=== PATIENT | male | born 1935 | race Caucasian/White ===

== ENCOUNTER 2017-07-31 13:53 | Emergency (ER) | payer MEDICARE, OTHER, SELFPAY ==
[2017-07-31 13:57] VITALS: BP 99/56; PULSE 74; RESP 18; TEMP 36.6; O2SAT 97; BMI 27.8
--- NOTE | 2017-07-31 14:16 | RAD_ITS ---
STUDY: X-RAY - LEFT SHOULDER REASON FOR EXAM: Male, 81 years old. Pain following a fall. History of prostate cancer. TECHNIQUE: 2 view(s) of the shoulder. COMPARISON: None. FINDINGS: There is moderate degenerative arthrosis of the glenohumeral articulation. There is degenerative arthrosis of the acromioclavicular joint without inferior osseous spur formation. Normal acromion. 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 There is evidence of a pathological oblique fracture of the proximal shaft of the left humerus. There is mild medial angulation at the fracture site. Soft tissue swelling. Increased markings at the left lung base suggestive of scarring and/or infiltrate. RAD/Shoulder min 2 Views IMPRESSION: Pathological fracture involving the proximal shaft of the left humerus as described. Osteoblastic metastasis. Increased markings at the left lung base. Electronically Signed: Mayur Garcia MD at 14:59 EST Tel [phone], Service support ,
--- NOTE | 2017-07-31 15:48 | ED.VISSUMM ---
- ER Visit Summary Date of Service: 07/31/17 Chief Complaint: [Injury left arm] History of Present Illness: The patient is a 81 M [presents with injury to left arm that occurred prior to arrival in the emergency department. Patient states that he was getting out of his vehicle and going to his oncologist's office to be weighed. As patient was getting out of his vehicle he put his weight on his left arm to brace himself and he felt a pop in his left arm and shoulder. Patient having severe pain and inability to move the arm very well. Patient does have a history of prostate cancer with metastasis.] Physical Examination: [HEENT-PERRLA, EOMI. Cranial nerves II through XII grossly intact. TMs clear. Mucous membranes moist. No adenopathy. Cardiovascular-regular rate and rhythm without murmur or ectopy Lungs-clear to auscultation, chest wall stable without crepitus or subcu emphysema Abdomen-normoactive bowel sounds, soft, nontender, no rebound or rigidity, no peritoneal signs. Extremities-intact ?4. Patient has obvious deformity to left proximal humerus with tenderness palpation. He has decreased range of motion of the glenohumeral joint. He is neurovascular intact distally. No breaks in the skin noted. Test Results: [X-ray of the left humerus showed a pathological fracture at the proximal shaft of the left humerus.] Emergency Department Course and Treatment: [I discussed case with Dr. Michael Sawant who asked that we place patient in a sling and swath and he will see the patient in the office in 1 week. Patient was given a dose of morphine in the emergency department with Zofran. Initially patient did not want anything for pain until prior to discharge.] Treatment Plan: [Sling and swath and Percocet for pain] Disposition: [Discharged to home in stable condition] Impression: [Pathological fracture left humerus] This note was generated with [employer] dictation software. It may contain incorrect words, spelling, and punctuation that were not noted in review of the chart prior to signing ED Disposition - Plan for ED Patient: Chief Complaint: Upper Extremity Injury Referrals: Keon Huizar [Primary Care Provider] -
--- NOTE | 2017-07-31 15:53 | ED.DEP ---
ED Disposition - Plan for ED Patient: Chief Complaint: Upper Extremity Injury Instructions: ED Fx Upper Ext Prescriptions: Oxycodone HCl/Acetaminophen [Percocet 5/325] 1 tab PO Q6H PRN PRN #20 tab PRN Reason: Pain Referrals: Keon Huizar [Primary Care Provider] - Additional Instructions: See Dr. Michael Sawant next in office. Call and ask for Ashley.
--- NOTE | 2017-07-31 15:56 | DCINST.ED_ITS ---
ED Disposition - Plan for ED Patient: Chief Complaint: Upper Extremity Injury Instructions: ED Fx Upper Ext Prescriptions: Oxycodone HCl/Acetaminophen [Percocet 5/325] 1 tab PO Q6H PRN PRN #20 tab PRN Reason: Pain Referrals: Keon Hiuzar [Primary Care Provider] - Additional Instructions: See Dr. Michael Sawant next in office. Call and ask for Ashley.
[2017-07-31] MEDS: Ondansetron ODT 4 MG Tablet PO (16:13)
[2017-07-31 16:36] VITALS: BP 147/71; PULSE 73; RESP 18; O2SAT 97
== END 2017-07-31 16:37 | disposition home or self-care (01) ==
PROVIDERS: Emergency Provider Emergency Medicine; Family Provider Family Medicine; PCP Family Medicine
DX: M84.422A Pathological fracture, left humerus, initial encounter for fracture (principal); I25.10 Atherosclerotic heart disease of native coronary artery without angina pectoris; J44.9 Chronic obstructive pulmonary disease, unspecified; E11.9 Type 2 diabetes mellitus without complications; I10 Essential (primary) hypertension; I25.2 Old myocardial infarction; Z79.82 Long term (current) use of aspirin; Z79.4 Long term (current) use of insulin; Z79.899 Other long term (current) drug therapy; Z85.46 Personal history of malignant neoplasm of prostate
CPT/HCPCS: 73030; 96372; 99285; J2405